=== PATIENT | male | born 1985 | race Caucasian/White ===

== ENCOUNTER 2017-06-28 14:39 | Emergency (ER) | payer SELFPAY ==
[~2017-06-28] VITALS: Ht 180.3 cm; Wt 70.3 kg
[~2017-06-28 14:39] MED LIST: AMOXICOT500 MG PO; AMOXIL500 MG PO; IBUPROFEN800 MG PO; KEFLEX 500MG.500 MG PO; LORTAB 5/500 501 TAB PO; NOMEDS *; PEN-VK500 MG PO; PERCOCET1 TAB PO; ROBAXIN-750750 MG PO; TORADOL10 MG PO; VIBRAMYCIN 100100 MG PO
--- NOTE | 2017-06-28 15:01 | Urgent Treatment Center Report ---
See Addendum History of Present Issue Date/Time Seen by Provider 06/28/17 1500 Visit Reason Pt arrived:Walked Presenting Problem:LIFTED A BOX YESTERDAY AND FELT A POP IN HIS LOWER BACK TO THE LEFT. SAYS HE WENT TO WORK LAST NIGHT AND NOW THE PAIN IS WORSE AND MAKES HIM NAUSEA Location if Accident: Onset of symptoms date/time:/ or onset unknown for:MEDICAL HX UNKNOWN Have you (or family members/close friends) recently traveled outside the [place]? N If Yes, where/when: Have you had exposure to infectious disease within the past month? TB? Other? Specify: Patient state that he was lifting a heavy box yesterday at home when he stood up quickly and felt something pull/pop in his left lower back area States that he was having some pain and discompfort. State that he went onto work and he works on a slicer at [employer] and the repeatitive movement made his upper back hurt and he feels like his muscles in his back are so tight that they make him feel nausea ALLERGIES Coded Allergies: No Known Allergies (12/17/15) History Medical History General CAD? No Angina: No [place]: No Hypertension? No Hyperlipidemia? No CHF? No DVT? No PE? No COPD? No Asthma? Yes Anemia? No GERD? No Gastric ulcers? No GI Bleed? No Hernia? No Thyroid Problems? No Hypothyroidism? No CVA? No Seizures? No Diabetes? No Renal Insuffiency? No UTI? No Stones? No BPH? No GB Disease: No Nephritic Syndrome? No Asplenia? No Hepatitis? No Sickle Cell Disease? No Arthritis? No Migraines? No Cataracts? No Glaucoma? No MRSA? No HIV? No TB? No Anxiety? No Depression? No Cancer? No More? No Immunization HX DT/Tetanus 5-10 YRS Surgical Hx Previous Surgery?Y Dental Surgery Social History Smoking Hx Smoker: Current Every Day Smoker Tobacco: Yes Type Cigarettes Packs/day < 1 Pack Alcohol Alcohol: No Review of Systems All Other Systems Reviewed and Negative Respiratory denies shortness of breath Musculoskeletal back pain, muscle pain, muscle stiffness Comment denies bowel or bladder involvement, denies numbness or tingling of lower extremitites Physical Exam Vital Signs Vital Signs Date Time Temp Pulse Resp B/P Pulse O2 O2 Flow FiO2 Ox Delivery Rate 06/28 1514 18 06/28 1446 99.1 114 18 173/94 98 General Appearance normal appearance, WD/WN, no apparent distress Neck normal inspection, non-tender, supple, full range of motion Respiratory Status Yes: trachea midline, chest symmetrical, non tender chest. No: respiratory distress. Lung Sounds bilateral: normal breath sounds, lungs clear. 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 No Results/Orders Current Medication Orders Sig/Sari Start time Last Medication Dose Route Stop Time Status Admin Ketorolac 60 MG ONCE ONE 06/28 1515 DC 06/28 Tromethamine IM 06/28 1516 1514 Orphenadrine Citrate 60 MG ONCE ONE 06/28 1515 DC 06/28 IM 06/28 1516 1513 Orphenadrine Citrate 0 .STK-MED ONE 06/28 1509 DC .ROUTE Ketorolac 0 .STK-MED ONE 06/28 1508 DC Tromethamine .ROUTE Progress [facility] Progress Notes Comment Patient state that medication has helped with back pain state that still feels tight but pain now decreased Departure Departure Time of Disposition 1518 Disposition DC Home or Self Care(routine) Clinical Impression Primary Impression: Back pain Qualifiers: Back pain location: low back pain Chronicity: unspecified Back pain laterality: left Sciatica presence: without sciatica Qualified Code: M54.5 - Low back pain Secondary Impressions: Muscle spasm Condition STABLE Referrals Family doctor Patient Instructions DI for Low Back Pain, DI for Muscle Spasm, DI for Thoracic Back Pain Additional Instructions Follow up with family doctor 2-3 days or sooner if pain continues or does not improve Return if needed If you began to have any difficulty with bowel or bladder problems related to back pain go straight to the closest ER Take medication as prescribed Discharge Counseling Counseled pt/family regarding diagnosis, medications/RX, home care, follow up needs Prescriptions Current Visit Scripts Etodolac 200 MG PO Q6HP PRN pain #28 CAP Cyclobenzaprine Hcl (Flexeril) 10 MG PO TID #15 TAB at [id number]
[2017-06-28] MEDS ORDERED: ETODOLAC200 MG PO (15:17)
[2017-06-28] MEDS ORDERED: FLEXERIL10 MG PO (15:17)
[2017-06-28 15:46] VITALS: BP 173/94
== END 2017-06-28 15:47 | disposition home or self-care (01) ==
LOC: UTC 14:39
DX: M54.5 Low back pain (principal); M62.838 Other muscle spasm; F17.210 Nicotine dependence, cigarettes, uncomplicated

== ENCOUNTER 2017-06-30 15:12 | Emergency (ER) | payer SELFPAY ==
[~2017-06-30] VITALS: Ht 180.3 cm; Wt 70.3 kg
[~2017-06-30 15:12] MED LIST changes: +ETODOLAC200 MG PO; +FLEXERIL10 MG PO
--- NOTE | 2017-06-30 15:22 | Emergency Room Report ---
History of Present Illness Time Seen by MD Shannon Presenting Problem in Triage Pt arrived:Walked Presenting Problem:PT C/O LOWER BACK PAIN THAT HAS WORSENED SINCE BEING SEEN IN [facility] ON WEDNESDAY Onset of symptoms date/time:/ or onset unknown for:MEDICAL HX UNKNOWN Treatment Prior to Arrival: [facility] [facility] Provided by: Sepsis Risk Assessment: Temp: 97.9 B/P: 149/96 MAP: 113 Pulse: 105 Resp: 18 Recent fever? N Clinical Suspician of Infection? N Mental Status: 1 - Regular (Normal Baseline) Sepsis Risk:Low Sepsis Risk Have you (or family members/close friends) recently traveled outside the [place]? N If Yes, where/when: Have you had exposure to infectious disease within the past month? N TB? Other? Specify: Comment The patient was lifting and twisting simultaneously on Wednesday 3 days ago when he felt a pop in his back and his had lumbar back pain ever since. He was seen in the urgent treatment center on Wednesday 2 days ago and was prescribed Flexeril and ibuprofen. The pressure in his back is increasing rather than decreasing. He also had some numbness in his LEFT arm on Wednesday but this is gone away. No numbness of the lower extremities. No loss of bowel or bladder control or saddle area numbness. He has a history of recurrent episodes of injury of his back in the same way where his back "locks up" with an injury. For a similar injury in December of last year. He has not had any follow-up or problems since then. He does not currently have a PCP. He has plenty of ibuprofen LEFT, he needs a refill on Flexeril. ALLERGIES Coded Allergies: No Known Allergies (06/30/17) Home Medications Active Scripts Etodolac 200 MG PO Q6HP PRN pain #28 CAP Prov: 06/28/17 Cyclobenzaprine Hcl (Flexeril) 10 MG PO TID #15 TAB Prov: 06/28/17 History Medical History General CAD? No Angina: No [place]: No Hypertension? No Hyperlipidemia? No CHF? No DVT? No PE? No COPD? No Asthma? Yes Anemia? No GERD? No Gastric ulcers? No GI Bleed? No Hernia? No Thyroid Problems? No Hypothyroidism? No CVA? No Seizures? No Diabetes? No Renal Insuffiency? No End Stage Renal Disease? No UTI? No Stones? No BPH? No GB Disease: No Nephritic Syndrome? No Asplenia? No Hepatitis? No Sickle Cell Disease? No Arthritis? No Migraines? No Cataracts? No Glaucoma? No MRSA? No HIV? No TB? No Anxiety? No Depression? No Cancer? No More? No Immunization Hx DT/Tetanus 5-10 YRS Surgical Hx Previous Surgery?Y Dental Surgery Social History Smoking Hx Packs/day < 1 Pack Alcohol Alcohol: No Review of Systems All Other Systems Reviewed and Negative Constitutional denies fever Musculoskeletal back pain Psychiatric/Neurological see HPI Physical Exam Vital Signs Vital Signs Date Time Temp Pulse Resp B/P Pulse O2 O2 Flow FiO2 Ox Delivery Rate 06/30 1618 98.3 84 18 150/60 99 06/30 1520 97.9 105 18 149/96 100 General Appearance no apparent distress Eye Exam - bilateral eye normal exam, bilateral eye PERRL, bilateral eye EOMI Ear, Nose, Throat hearing grossly normal, normal ENT inspection Neck normal inspection, non-tender, supple, full range of motion Respiratory Status Yes: trachea midline, chest symmetrical, non tender chest. No: respiratory distress. Cardiovascular normal peripheral pulses Peripheral Pulses Pulses normal Yes Back normal inspection, vertebral tenderness (entire lumbar spine) Extremities normal range of motion, normal inspection Neurologic alert, no motor/sensory deficits, oriented x 3 Reflexes Reflexes normal Yes Comment One plus, symmetric Mental status normal mood/affect Skin intact, normal color, warm/dry Medical Decision Making LABS/Meds/Orders Pt receiving controlled substance in ED? Yes Gregory was queried for this patient? Yes Comment [id number] rxs. Departure Departure Disposition DC Home or Self Care(routine) Clinical Impression Primary Impression: Lumbar strain Qualifiers: Encounter type: initial encounter Qualified Code: S39.012A - Strain of muscle, fascia and tendon of lower back, initial encounter Condition STABLE Patient Instructions DI for Low Back Pain Additional Instructions Off work until Wednesday07/04/17. Additional instructions for BACK PAIN: See your physician as soon as possible for further evaluation. Return immediately if back pain becomes intolerable, or if fever, numbness or weakness of your legs, loss of control of your bowels or bladder. Prescriptions Current Visit Scripts HYDROCODONE/ACETAMINOPHEN ([place] 5-325 Tablet) 1 TAB PO Q6HP PRN pain #10 TAB Cyclobenzaprine Hcl (Flexeril) 10 MG PO TIDP PRN back pain #20 TAB ED Critical Care Critical Care No at 9227
--- NOTE | 2017-06-30 15:22 | Emergency Room Report ---
History of Present Illness Time Seen by MD Shannon Presenting Problem in Triage Pt arrived:Walked Presenting Problem:PT C/O LOWER BACK PAIN THAT HAS WORSENED SINCE BEING SEEN IN [facility] ON WEDNESDAY Onset of symptoms date/time:/ or onset unknown for:MEDICAL HX UNKNOWN Treatment Prior to Arrival: [facility] Provided by: Sepsis Risk Assessment: Temp: 97.9 B/P: 149/96 MAP: 113 Pulse: 105 Resp: 18 Recent fever? N Clinical Suspician of Infection? N Mental Status: 1 - Regular (Normal Baseline) Sepsis Risk:Low Sepsis Risk Have you (or family members/close friends) recently traveled outside the [place]? N If Yes, where/when: Have you had exposure to infectious disease within the past month? N TB? Other? Specify: Comment The patient was lifting and twisting simultaneously on Wednesday 3 days ago when he felt a pop in his back and his had lumbar back pain ever since. He was seen in the urgent treatment center on Wednesday 2 days ago and was prescribed Flexeril and ibuprofen. The pressure in his back is increasing rather than decreasing. He also had some numbness in his LEFT arm on Wednesday but this is gone away. No numbness of the lower extremities. No loss of bowel or bladder control or saddle area numbness. He has a history of recurrent episodes of injury of his back in the same way where his back "locks up" with an injury. For a similar injury in December of last year. He has not had any follow-up or problems since then. He does not currently have a PCP. He has plenty of ibuprofen LEFT, he needs a refill on Flexeril. ALLERGIES Coded Allergies: No Known Allergies (06/30/17) Home Medications Active Scripts Etodolac 200 MG PO Q6HP PRN pain #28 CAP Prov: 06/28/17 Cyclobenzaprine Hcl (Flexeril) 10 MG PO TID #15 TAB Prov: 06/28/17 History Medical History General CAD? No Angina: No [place]: No Hypertension? No Hyperlipidemia? No CHF? No DVT? No PE? No COPD? No Asthma? Yes Anemia? No GERD? No Gastric ulcers? No GI Bleed? No Hernia? No Thyroid Problems? No Hypothyroidism? No CVA? No Seizures? No Diabetes? No Renal Insuffiency? No End Stage Renal Disease? No UTI? No Stones? No BPH? No GB Disease: No Nephritic Syndrome? No Asplenia? No Hepatitis? No Sickle Cell Disease? No Arthritis? No Migraines? No Cataracts? No Glaucoma? No MRSA? No HIV? No TB? No Anxiety? No Depression? No Cancer? No More? No Immunization Hx DT/Tetanus 5-10 YRS Surgical Hx Previous Surgery?Y Dental Surgery Social History Smoking Hx Packs/day < 1 Pack Alcohol Alcohol: No Review of Systems All Other Systems Reviewed and Negative Constitutional denies fever Musculoskeletal back pain Psychiatric/Neurological see HPI Physical Exam Vital Signs Vital Signs Date Time Temp Pulse Resp B/P Pulse O2 O2 Flow FiO2 Ox Delivery Rate 06/30 1618 98.3 84 18 150/60 99 06/30 1520 97.9 105 18 149/96 100 General Appearance no apparent distress Eye Exam - bilateral eye normal exam, bilateral eye PERRL, bilateral eye EOMI Ear, Nose, Throat hearing grossly normal, normal ENT inspection Neck normal inspection, non-tender, supple, full range of motion Respiratory Status Yes: trachea midline, chest symmetrical, non tender chest. No: respiratory distress. Cardiovascular normal peripheral pulses Peripheral Pulses Pulses normal Yes Back normal inspection, vertebral tenderness (entire lumbar spine) Extremities normal range of motion, normal inspection Neurologic alert, no motor/sensory deficits, oriented x 3 Reflexes Reflexes normal Yes Comment One plus, symmetric Mental status normal mood/affect Skin intact, normal color, warm/dry Medical Decision Making LABS/Meds/Orders Pt receiving controlled substance in ED? Yes Gregory was queried for this patient? Yes Comment [id number] rxs. Departure Departure Disposition DC Home or Self Care(routine) Clinical Impression Primary Impression: Lumbar strain Qualifiers: Encounter type: initial encounter Qualified Code: S39.012A - Strain of muscle, fascia and tendon of lower back, initial encounter Condition STABLE Patient Instructions DI for Low Back Pain Additional Instructions Off work until Wednesday07/04/17. Additional instructions for BACK PAIN: See your physician as soon as possible for further evaluation. Return immediately if back pain becomes intolerable, or if fever, numbness or weakness of your legs, loss of control of your bowels or bladder. Prescriptions Current Visit Scripts HYDROCODONE/ACETAMINOPHEN ([place] 5-325 Tablet) 1 TAB PO Q6HP PRN pain #10 TAB Cyclobenzaprine Hcl (Flexeril) 10 MG PO TIDP PRN back pain #20 TAB ED Critical Care Critical Care No at 9030
[2017-06-30] MEDS ORDERED: NORCO 325 MG-51 TAB PO (15:56)
[2017-06-30] MEDS ORDERED: FLEXERIL10 MG PO (15:56)
[2017-06-30 16:18] VITALS: BP 150/60
== END 2017-06-30 16:19 | disposition home or self-care (01) ==
LOC: ER 15:12
DX: S39.012A Strain of muscle, fascia and tendon of lower back, initial encounter (principal); J45.909 Unspecified asthma, uncomplicated

== ENCOUNTER 2017-07-18 16:03 | Emergency (ER) | payer MEDICAID ==
[~2017-07-18] VITALS: Ht 180.3 cm; Wt 70.3 kg
[~2017-07-18 16:03] MED LIST changes: +NORCO 325 MG-51 TAB PO
--- OUTSIDE RECORDS SUMMARY | 2017-07-18 16:13 | External Medical Summary Rpt | CCD ---
Author Author , WILFREDO VILLALOBOS Address Unknown Phone [email or web address] Support Name Relationship Address Phone LOCUS, Next Of Kin Unknown +1 CELINA [phone] Purpose Continuity of Care Document - 05-30-2013 through 2016 Problems Code Diagnosis DOS Provider Status [id number] J02.0 STREPTOCOCC AL PHARYNGITIS R07.89 OTHER CHEST PAIN R07.9 CHEST PAIN, UNSPECIFIED R09.1 PLEURISY S39.012A STRAIN OF MUSCLE, FASCIA AND TENDON OF LOWER BACK, INIT Allergies, Adverse Reactions, Alerts Type Allergy to substance Adverse Reaction to Substance Substance Reaction Severity NO KNOWN ALLERGIES Unknown Unknown Medications Na ND Rx Da Fi Fi Am Da Di Ph RX Ph St me C No te ll ll ou ys ag ar # ys at rm s nt no ma ic us Or Da si cy ia de te s n re d HY [address] 40 -2 OC 60 0- Lo OD 36 20 ng ON 56 13 er -A 2 CE Ac TA ti ND ve NO PH EN 5- 32 5 LI 00 09 0 No DO 05 -2 CA 48 0- Lo IN 50 20 ng E 01 13 er 2% 6 Ac ti SC ve OU S 15 ML UD C CE 00 08 0 No FT 78 -2 RI 19 7- Lo AX 32 20 ng ON 89 13 er E 5 1 Ac GM ti ve AL KE 00 08 0 No TO 40 -2 RO 93 7- Lo LA 79 20 ng C 60 13 er 60 1 Ac MG ti /2 ve ML AL LI 00 08 0 No DO 05 -2 CA 48 7- Lo IN 50 20 ng E 01 13 er 2% 6 Ac ti SC ve OU S 15 ML UD C Vital Signs 06-24-2013 00:10 Name Value Interpretat Reference Comment ion Range BP 70 mm[Hg] Diastolic BP Systolic 145 mm[Hg] Heart 68 /min Rate/Pulse O2% 98 % Respiratory 18 /min Rate 05-30-2013 12:19 Name Value Interpretat Reference Comment ion Range BP 91 mm[Hg] Diastolic BP Systolic 128 mm[Hg] Heart 72 /min Rate/Pulse O2% 98 % Respiratory 20 /min Rate 05-30-2013 11:30 Name Value Interpretat Reference Comment ion Range BP 96 mm[Hg] Diastolic BP Systolic 135 mm[Hg] Heart 70 /min Rate/Pulse O2% 98 % Respiratory 20 /min Rate Encounters Encounter Start End Date Code Location Performer Type Date Emergency AHSAN Barlow MD (ER) 3 23:39 3 00:11 [facility] Emergency AHSAN Cintron MD (ER) 3 11:10 3 12:29 [facility]
--- OUTSIDE RECORDS SUMMARY | 2017-07-18 16:13 | External Medical Summary Rpt | CCD ---
Author Author , WILFREDO VILLALOBOS Address Unknown Phone [email or web address] Support Name Relationship Address Phone LOCUS, Next Of Kin Unknown +1 CELINA [phone] Purpose Continuity of Care Document - 05-30-2013 through 2016 Problems Code Diagnosis DOS Provider Status [id number] J02.0 STREPTOCOCC AL PHARYNGITIS R07.89 OTHER CHEST [...] er -A 2 CE Ac TA ti PA ve NO PH EN 5- 32 5 [...] Barlow MD (ER) 3 23:39 3 00:11 [facility] Emergency AHSAN Cintron MD (ER) 3 11:10 3 12:29 [facility]
--- NOTE | 2017-07-18 16:14 | Emergency Room Report ---
History of Present Illness Time Seen by 160Chavo Presenting Problem in Triage Pt arrived:Walked Presenting Problem:PT REPORTS LOWER BACK PAIN, PT STATES LOWER BACK IS "LOCKED UP" STATES "INTENSE SHOOTING PAIN IN LOWER BACK" Onset of symptoms date/time:/ or onset unknown for:MEDICAL HX UNKNOWN Treatment Prior to Arrival: [employer] Provided by: Sepsis Risk Assessment: Temp: 97.8 B/P: 162/100 MAP: 120 Pulse: 83 Resp: 18 Recent fever? N Clinical Suspician of Infection? N Mental Status: 1 - Regular (Normal Baseline) Sepsis Risk:Low Sepsis Risk Have you (or family members/close friends) recently traveled outside the [place]? N If Yes, where/when: Have you had exposure to infectious disease within the past month? N TB? Other? Specify: Comment The patient complains of lower back pain. This is the third visit for which I have seen him in this emergency room for this complaint. He has recurrent episodes where his back "locks up" in the lumbar area due to lifting. I most recently saw him on . He was given a couple of days off work and says that he returned on Wednesday, 6 days ago. He says he was okay for the first 2 or 3 days but since then his back has locked up on him 3 times. He complains of lumbar pain. He has some intermittent tingling or numbness in his LEFT thigh and hip area. No numbness of the lower legs or groin. No loss of bowel or bladder control. He has not seen anybody in follow-up after any of the previous visits for this problem. He did not have insurance, but says he does now. He says that his employer, [employer], return him to work last Wednesday without a doctor's clearance. He has not had x-rays on previous visits. ALLERGIES Coded Allergies: No Known Allergies (06/30/17) Home Medications Reported Medications No Known Home Medications History Medical History General CAD? No Angina: No [place]: No Hypertension? No Hyperlipidemia? No CHF? No DVT? No PE? No COPD? No Asthma? Yes Anemia? No GERD? No Gastric ulcers? No GI Bleed? No Hernia? No Thyroid Problems? No Hypothyroidism? No CVA? No Seizures? No Diabetes? No Renal Insuffiency? No End Stage Renal Disease? No UTI? No Stones? No BPH? No GB Disease: No Nephritic Syndrome? No Asplenia? No Hepatitis? No Sickle Cell Disease? No Arthritis? No Migraines? No Cataracts? No Glaucoma? No MRSA? No HIV? No TB? No Anxiety? No Depression? No Cancer? No More? No Immunization Hx DT/Tetanus 5-10 YRS Surgical Hx Previous Surgery?Y Dental Surgery Social History Smoking Hx Packs/day < 1 Pack Alcohol Alcohol: No Review of Systems All Other Systems Reviewed and Negative Constitutional denies fever Musculoskeletal back pain Psychiatric/Neurological tingling, denies weakness Physical Exam Vital Signs Vital Signs Date Time Temp Pulse Resp B/P Pulse O2 O2 Flow FiO2 Ox Delivery Rate 07/18 1610 97.8 83 18 162/100 100 General Appearance no apparent distress Respiratory Status No: respiratory distress. Cardiovascular regular rate/rhythm, normal peripheral pulses Back vertebral tenderness (lumbar) Neurologic alert, no motor/sensory deficits Reflexes DTR 2+ knee (R), 2+ knee (L), 1+ ankle (R), 1+ ankle (L) Medical Decision Making LABS/Meds/Orders Pt receiving controlled substance in ED? No Gregory was queried for this patient? Yes Comment [id number] 1 rx on 06/30/17, 10 norco. Results/Orders Orders Procedure Date/time Status LUMBAR SPINE 5 VIEWS 07/18 1623 Active XRAY/CT/US XRAY/CT/US XRAY L-spine Comment X-ray interpreted by Tigre Aburto MD. Negative for fracture, dislocation, or subluxation. Departure Departure Disposition DC Home or Self Care(routine) Clinical Impression Primary Impression: Lumbar strain Qualifiers: Encounter type: initial encounter Qualified Code: S39.012A - Strain of muscle, fascia and tendon of lower back, initial encounter Condition STABLE Patient Instructions DI for Low Back Pain Additional Instructions Off work until Wednesday07/21/17. Follow-up with a primary care physician, list given, or with spinal orthopedic physician: Dr. Geovanny Segovia [facility] [place] Office [address] [place] [id number] Additional instructions for BACK PAIN: See your physician as soon as possible for further evaluation. Return immediately if back pain becomes intolerable, or if fever, numbness or weakness of your legs, loss of control of your bowels or bladder. Prescriptions Current Visit Scripts Naproxen (Naprosyn 500MG Tab) 500 MG PO BID #14 TAB Cyclobenzaprine Hcl (Flexeril) 5 MG PO TIDP PRN back pain or spasm #12 TAB ED Critical Care Critical Care No at 5914
--- NOTE | 2017-07-18 16:14 | Emergency Room Report ---
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 N Clinical Suspician of Infection? N Mental Status: 1 - Regular (Normal Baseline) Sepsis Risk:Low Sepsis Risk Have you (or family members/close friends) recently traveled outside the [place]? N If Yes, where/when: Have you had exposure to infectious disease within the past month? N TB? Other? Specify: Comment The patient complains of lower back pain. This is the third visit for which I have seen him in this emergency room for this complaint. He has recurrent episodes where his back "locks up" in the lumbar area due to lifting. I most recently saw him on . He was given a couple of days off work and says that he returned on Wednesday, 6 days ago. He says he was okay for the first 2 or 3 days but since then his back has locked up on him 3 times. He complains of lumbar pain. He has some intermittent tingling or numbness in his LEFT thigh and hip area. No numbness of the lower legs or groin. No loss of bowel or bladder control. He has not seen anybody in follow-up after any of the previous visits for this problem. He did not have insurance, but says he does now. He says that his employer, [employer], return him to work last Wednesday without a doctor's clearance. He has not had x-rays on previous visits. ALLERGIES Coded Allergies: No Known Allergies (06/30/17) Home Medications Reported Medications No Known Home Medications History Medical History General CAD? No Angina: No NE: No Hypertension? No Hyperlipidemia? No CHF? No DVT? No PE? No COPD? No Asthma? Yes Anemia? No GERD? No Gastric ulcers? No GI Bleed? No Hernia? No Thyroid Problems? No Hypothyroidism? No CVA? No Seizures? No Diabetes? No Renal Insuffiency? No End Stage Renal Disease? No UTI? No Stones? No BPH? No GB Disease: No Nephritic Syndrome? No Asplenia? No Hepatitis? No Sickle Cell Disease? No Arthritis? No Migraines? No Cataracts? No Glaucoma? No MRSA? No HIV? No TB? No Anxiety? No Depression? No Cancer? No More? No Immunization Hx DT/Tetanus 5-10 YRS Surgical Hx Previous Surgery?Y Dental Surgery Social History Smoking Hx Packs/day < 1 Pack Alcohol Alcohol: No Review of Systems All Other Systems Reviewed and Negative Constitutional denies fever Musculoskeletal back pain Psychiatric/Neurological tingling, denies weakness Physical Exam Vital Signs Vital Signs Date Time Temp Pulse Resp B/P Pulse O2 O2 Flow FiO2 Ox Delivery Rate 07/18 1610 97.8 83 18 162/100 100 General Appearance no apparent distress Respiratory Status No: respiratory distress. Cardiovascular regular rate/rhythm, normal peripheral pulses Back vertebral tenderness (lumbar) Neurologic alert, no motor/sensory deficits Reflexes DTR 2+ knee (R), 2+ knee (L), 1+ ankle (R), 1+ ankle (L) Medical Decision Making LABS/Meds/Orders Pt receiving controlled substance in ED? No Gregory was queried for this patient? Yes Comment [id number] 1 rx on 06/30/17, 10 norco. Results/Orders Orders Procedure Date/time Status LUMBAR SPINE 5 VIEWS 07/18 1623 Active XRAY/CT/US XRAY/CT/US XRAY L-spine Comment X-ray interpreted by Tigre Aburto MD. Negative for fracture, dislocation, or subluxation. Departure Departure Disposition DC Home or Self Care(routine) Clinical Impression Primary Impression: Lumbar strain Qualifiers: Encounter type: initial encounter Qualified Code: S39.012A - Strain of muscle, fascia and tendon of lower back, initial encounter Condition STABLE Patient Instructions DI for Low Back Pain Additional Instructions Off work until Wednesday07/21/17. Follow-up with a primary care physician, list given, or with spinal orthopedic physician: Dr. Geovanny Segovia [facility] [place] [facility] [address] [place] [id number] Additional instructions for BACK PAIN: See your physician as soon as possible for further evaluation. Return immediately if back pain becomes intolerable, or if fever, numbness or weakness of your legs, loss of control of your bowels or bladder. Prescriptions Current Visit Scripts Naproxen (Naprosyn 500MG Tab) 500 MG PO BID #14 TAB Cyclobenzaprine Hcl (Flexeril) 5 MG PO TIDP PRN back pain or spasm #12 TAB ED Critical Care Critical Care No at 7438
--- OUTSIDE RECORDS SUMMARY | 2017-07-18 16:14 | External Medical Summary Rpt ---
Author Author WILFREDO Saleem, WILFREDO Saleem Organization [employer] Address Unknown Phone Unavailable
--- OUTSIDE RECORDS SUMMARY | 2017-07-18 16:14 | External Medical Summary Rpt | CCD ---
Author Author , WILFREDO VILLALOBOS Address Unknown Phone [email or web address] Purpose Continuity of Care Document - through 2016
--- OUTSIDE RECORDS SUMMARY | 2017-07-18 16:14 | External Medical Summary Rpt | CCD ---
Demographics Preferred Language Maori Marital Status Unknown Presybeterian Affiliation Unknown Race Unknown Ethnic Group Unknown Author Author , WILFREDO VILLALOBOS Address Unknown Phone Immunization No patient found.
--- OUTSIDE RECORDS SUMMARY | 2017-07-18 16:14 | External Medical Summary Rpt | CCD ---
Demographics Preferred Language Syriac Marital Status Unknown Anabaptism Affiliation Unknown Race Unknown Ethnic Group Unknown Author Author , WILFREDO VILLALOBOS Address Unknown Phone Immunization No patient found.
--- OUTSIDE RECORDS SUMMARY | 2017-07-18 16:14 | External Medical Summary Rpt | CCD ---
Author Author , WILFREDO VILLALOBOS Address Unknown Phone [email or web address] That Purpose Continuity of Care Document - through 2016
[2017-07-18] MEDS ORDERED: NAPROSYN500 M1 PO (16:52)
[2017-07-18] MEDS ORDERED: FLEXERIL10 MG PO (16:52)
[2017-07-18 17:08] VITALS: BP 148/80
--- NOTE | 2017-07-19 05:28 | RADIOLOGY REPORT PS360 ---
EXAM: LUMBAR SPINE 5 VIEWS HISTORY: low back pain ORDERING PHYSICIAN: Tigre Aburto MD PATIENT AGE: 31 years COMPARISON: None FINDINGS: Normal alignment. No fracture or dislocation. No lytic or blastic change. No significant degenerative change. The disc spaces are preserved. IMPRESSION: Negative lumbar spine
== END 2017-07-18 17:08 | disposition home or self-care (01) ==
LOC: ER 16:03
DX: S39.012A Strain of muscle, fascia and tendon of lower back, initial encounter (principal)